=== PATIENT | female | born 1985 | race Caucasian/White ===

== ENCOUNTER 2023-11-19 07:20 | Inpatient (IN) | payer OTHER ==
[2023-11-19] MEDS: ELECTROLYTE-148 SOLN 1,000 ML IV SCH (09:30)
[2023-11-19] MEDS ORDERED: OXYTOCIN 30 UNITS in 0.9% NS 30 UNIT/500 ML INFUS.BAG IVPB ONE (09:34)
[2023-11-19] MEDS: OXYTOCIN 30 UNITS in 0.9% NS 30 UNIT/500 ML INFUS.BAG IVPB SCH (09:40)
[2023-11-19 10:27] LABS: BASO % 0.3 % (0-2.0); EOS % 0.4 % (0-4.5); LYMPH % 19.9 % (8-40); MCH 25.7 pg (25.7-33.7); MCHC 33.5 g/dl (32.0-36.0); MEAN CELL VOLUME 76.8 fl (80-96); MEAN PLT VOLUME 9.9 fl (7.5-11.1); MONO % 8.3 % (3.8-10.2); NEUT % 71.1 % (42.8-82.8); PLATELET COUNT 148 10^3/uL (134-434); RBC 4.69 M/mm3 (3.60-5.2); RDW 16.2 % (11.6-15.6); WHITE BLOOD COUNT 8.2 K/mm3 (4.0-10.0)
[2023-11-19 10:29] LABS: INR 0.92 (0.83-1.09); PROTHROMBIN TIME (PATIENT) 10.6 SEC (9.7-13.0)
[2023-11-19 10:32] LABS: ACTIVATED PTT 27.1 SECONDS (25.2-36.5)
[2023-11-19 10:50] LABS: BLOOD UREA NITROGEN 7.4 mg/dL (7-18); CALCIUM 8.7 mg/dL (8.5-10.1)
[2023-11-19 10:54] LABS: CREATININE 0.4 mg/dL (0.55-1.3)
[2023-11-19 11:04] VITALS: BMI 35.7
[2023-11-19 14:50] LABS: HIV INTERPRETATION NEGATIVE (NEGATIVE)
[2023-11-19] MEDS ORDERED: FENTANYL/BUPIVACAINE/NS/PF - PCEA - 50 ML DISP.SYRIN EP ONE (19:00)
[2023-11-19] MEDS ORDERED: BUPIVACAINE HCL/PF 0.25% (2.5MG/ML) 10 ML VIAL ONE ×2 (19:06→20:41)
[2023-11-19] MEDS: FENTANYL/BUPIVACAINE/NS/PF - PCEA - 50 ML DISP.SYRIN EP SCH (19:20)
[2023-11-19] MEDS ORDERED: NALOXONE HCL 0.4 MG/ML VIAL IVPUSH PRN (20:50)
[2023-11-19] MEDS ORDERED: LIDOCAINE HCL 1% PRESERVATIVE FREE - 30ML VIAL ONE (22:23)
[2023-11-19] MEDS ORDERED: OXYTOCIN 20 UNITS in 0.9% NS 20 UNIT/1,000 ML INFUS.BAG IV ONE (22:23)
[2023-11-19] MEDS: OXYTOCIN 20 UNITS in 0.9% NS 20 UNIT/1,000 ML INFUS.BAG IV SCH (22:53)
[2023-11-19] MEDS ORDERED: BENZOCAINE 28 GM HEMORRHOIDAL OINTMENT TP PRN (23:08)
[2023-11-19] MEDS ORDERED: WITCH HAZEL 50% (TUCKS) 40 PAD/JAR PAD TP PRN (23:08)
[2023-11-19] MEDS ORDERED: METHYLERGONOVINE MALEATE 0.2 MG/1 ML AMP IM PRN (23:08)
[2023-11-19] MEDS ORDERED: BENZOCAINE 20% 57 GM BOTTLE TP PRN (23:08)
[2023-11-19] MEDS ORDERED: BISACODYL 10 MG SUPP.RECT RC PRN (23:08)
[2023-11-19] MEDS: AMPICILLIN NA/SULBACTAM NA 1.5 GM in SODIUM CHLORIDE 100 ML IVPB ONE (23:30)
[2023-11-20] MEDS ORDERED: IBUPROFEN 600 MG TABLET (FP) PO ONE (01:30)
[2023-11-20] MEDS: IBUPROFEN 600 MG TABLET (FP) PO PRN (01:32)
[2023-11-20 07:55] LABS: BASO % 0.2 % (0-2.0); EOS % 0.1 % (0-4.5); HEMATOCRIT 37.6 % (32.4-45.2); HEMOGLOBIN 12.2 GM/dL (10.7-15.3); LYMPH % 14.7 % (8-40); MCH 25.6 pg (25.7-33.7); MCHC 32.5 g/dl (32.0-36.0); MEAN CELL VOLUME 78.7 fl (80-96); MEAN PLT VOLUME 10.8 fl (7.5-11.1); MONO % 5.3 % (3.8-10.2); NEUT % 79.7 % (42.8-82.8); PLATELET COUNT 152 10^3/uL (134-434); RBC 4.78 M/mm3 (3.60-5.2); RDW 16.5 % (11.6-15.6); WHITE BLOOD COUNT 14.1 K/mm3 (4.0-10.0)
[2023-11-20] MEDS: PRENATAL VITAMINS W/ FOLIC ACID TABLET (FP) PO SCH (10:37)
[2023-11-20] MEDS ORDERED: SENNOSIDES/DOCUSATE COMBO (SENNA PLUS) TABLET (UD) PO PRN (22:00)
[2023-11-20] MEDS: ACETAMINOPHEN 325 MG TABLET (FP) PO PRN (22:16)
[2023-11-21 10:19] VITALS: BP 118/82; PULSE 72; RESP 18; TEMP 98.6
== END 2023-11-21 12:25 | disposition home or self-care (01) | DRG 560 ==
LOC: JLDR 07:20 → J3W 11-20 01:57
PROVIDERS: ADMIT Student in an Organized Health Care Education/Training Program; ATTEND Student in an Organized Health Care Education/Training Program
PROC: 10E0XZZ Delivery of Products of Conception, External Approach (ICD-10-PCS; principal; 2023-11-19)
PROC: 3E033VJ Introduction of Other Hormone into Peripheral Vein, Percutaneous Approach (ICD-10-PCS; 2023-11-19)
PROC: 10907ZC Drainage of Amniotic Fluid, Therapeutic from Products of Conception, Via Natural or Artificial Opening (ICD-10-PCS; 2023-11-19)
PROC: 10H07YZ Insertion of Other Device into Products of Conception, Via Natural or Artificial Opening (ICD-10-PCS; 2023-11-19)
DX: O48.0 Post-term pregnancy (principal); Z3A.41 41 weeks gestation of pregnancy; Z37.0 Single live birth
CPT/HCPCS: 36415; 59409; 80048; 85025; 85610; 85730; 86780; 86803; 86850; 86900; 86901; 87389